=== PATIENT | male | born 1975 | race Two or more races ===

== ENCOUNTER 2023-08-20 11:37 | Emergency (ER) | payer OTHER ==
[~2023-08-20] VITALS: Ht 170.2 cm; Wt 86.4 kg
[2023-08-20] MEDS: ASPirin 81 mg TAB PO ONE (12:00)
[2023-08-20] MEDS: cloNIDine HCL 0.1 MG TAB PO ONE (12:00)
[2023-08-20 12:15] LABS: Basophils # (auto) 0 10 ^3/uL (0-0.2); Basophils % (auto) 0.4 % (0.0-2.0); Eosinophils # (auto) 0 10 ^3/uL (0-0.8); Eosinophils % (auto) 0.3 % (0.0-7.0); Hematocrit 47.5 % (41.0-53.0); Hemoglobin 16.1 g/dL (13.5-17.5); Lymphocytes # (auto) 3.2 10 ^3/uL (0.4-5.4); Lymphocytes % (auto) 34.6 % (10.0-50.0); Mean Corpuscular Volume 88.3 fL (80.0-100.0); Monocytes # (auto) 0.6 10 ^3/uL (0-1.3); Monocytes % (auto) 6.5 % (0.0-12.0); Neutrophils # (auto) 5.3 10 ^3/uL (1.6-8.6); Neutrophils % (auto) 58.2 % (37.0-80.0); Nucleated Red Blood Cells % 0.1 %; Red Blood Cells 5.39 10^6/uL (4.5-5.90); White Blood Cell 9.1 10^3/uL (4.4-10.8)
[2023-08-20 12:28] LABS: Chloride 107 mmol/L (98-107); Potassium 3.5 mmol/L (3.5-5.1); Sodium 141 mmol/L (136-145)
[2023-08-20 12:29] LABS: Anion Gap 4 (5-15); Carbon Dioxide 30 mmol/L (20-30)
[2023-08-20 12:34] LABS: BUN/Creatinine Ratio 8.1 (10.0-20.0); Blood Urea Nitrogen 8 mg/dL (9-23); Glucose 86 mg/dL (74-106)
[2023-08-20 12:35] LABS: Magnesium 2.2 mg/dL (1.6-2.6)
[2023-08-20 15:52] VITALS: BP 149/101; PULSE 71; RESP 18; O2SAT 100
== END 2023-08-20 15:54 | disposition home or self-care (01) ==
LOC: ER 11:37
DX: I16.0 Hypertensive urgency (principal); R55 Syncope and collapse
CPT/HCPCS: 36415; 71046; 80048; 83735; 84484; 85025; 85379; 93005